=== PATIENT | female | born 1995 | race Caucasian/White ===

== ENCOUNTER 2018-10-02 16:42 | Emergency (ER) | payer BC ==
[~2018-10-02] VITALS: Ht 167.6 cm; Wt 59.1 kg
[2018-10-02 16:50] VITALS: TEMP 98.5
[2018-10-02] MEDS ORDERED: NORCO 325 MG-51 TAB PO (19:05)
[2018-10-02 22:09] VITALS: BP 109/57; PULSE 75
== END 2018-10-02 19:15 | disposition home or self-care (01) ==
LOC: COL.ER 16:42
DX: S82.852A Displaced trimalleolar fracture of left lower leg, initial encounter for closed fracture (principal); X50.0XXA Overexertion from strenuous movement or load, initial encounter; Y92.219 Unspecified school as the place of occurrence of the external cause
CPT/HCPCS: J2250; J3010; J7030; Q4045